=== PATIENT | male | born 1955 | race Caucasian/White ===

== ENCOUNTER → 2017-03-28 | Day surgery (SDC) | payer OTHER ==
[~2017-03-28] VITALS: Ht 175.3 cm; Wt 111.8 kg
[~2017-03-28] MED LIST: ASPIRIN CHEWABL81 MG PO; BYSTOLIC10 MG PO; CERTAGEN1 EACH PO; COLACE100 MG PO; FLOMAX0.4 MG PO; LIPITOR40 MG PO; LOSARTAN POTASS50 MG PO; LOVAZA1 GM PO; MAXZIDE 37.5 M1 EACH PO; NORCO 5-325 TA1 EAC1 PO; TURMERIC
[2017-03-28 09:16] LABS: HCT 43.8 % (42.0-52.0); HGB 14.9 g/dl (13.2-18.0); MCH 31.4 pg (25.0-31.0); MCV 92.2 fL (78.0-100.0); MPV 9.2 fL (6.0-9.5); RBC 4.75 M/uL (4.70-6.00); RDW 13.3 % (11.5-14.0)
[2017-03-28 09:37] LABS: ALBUMIN 4.2 g/dL (3.5-5.0); BILIRUBIN - TOTAL 1.2 mg/dL (0.1-1.0); CREATININE 0.9 mg/dL (0.7-1.2); POTASSIUM 4.3 mmol/L (3.5-5.1); TOTAL PROTEIN 7.2 g/dL (6.4-8.3)
== END | disposition home or self-care (01) ==
LOC: FAS 08:43
PROVIDERS: Surgery
DX: Z12.11 Encounter for screening for malignant neoplasm of colon (principal); I10 Essential (primary) hypertension; I25.10 Atherosclerotic heart disease of native coronary artery without angina pectoris; E78.1 Pure hyperglyceridemia; E78.2 Mixed hyperlipidemia; F10.10 Alcohol abuse, uncomplicated; N36.8 Other specified disorders of urethra; N40.0 Benign prostatic hyperplasia without lower urinary tract symptoms; M19.90 Unspecified osteoarthritis, unspecified site; K76.9 Liver disease, unspecified; Z90.89 Acquired absence of other organs; Z98.52 Vasectomy status; Z82.49 Family history of ischemic heart disease and other diseases of the circulatory system; Z87.891 Personal history of nicotine dependence; Z83.3 Family history of diabetes mellitus; Z81.1 Family history of alcohol abuse and dependence; Z79.82 Long term (current) use of aspirin; Z79.899 Other long term (current) drug therapy; Z98.890 Other specified postprocedural states
CPT/HCPCS: 36415; 80053; J2704